=== PATIENT | female | born 1965 | race Caucasian/White ===

== ENCOUNTER 2021-09-11 12:47 | Emergency (ER) | payer OTHER | END 2021-09-11 13:45 | disposition home or self-care (01) | LOC: ER1 12:47 | DX: R19.7 Diarrhea, unspecified (principal); Z20.822 Contact with and (suspected) exposure to COVID-19; J45.909 Unspecified asthma, uncomplicated; I10 Essential (primary) hypertension | CPT/HCPCS: 99283 ==